=== PATIENT | female | born 1980 | race Asian ===

== ENCOUNTER 2021-07-22 08:31 | Emergency (ER) | payer OTHER ==
[~2021-07-22] VITALS: Ht 165.1 cm; Wt 81.6 kg
[2021-07-22 08:38] VITALS: BP 119/79; TEMP 96.6
== END 2021-07-22 09:53 | disposition home or self-care (01) ==
LOC: ED 08:31
DX: J06.9 Acute upper respiratory infection, unspecified (principal); U07.1 COVID-19
CPT/HCPCS: 87635; 96372; 99283; J1100; U0003